=== PATIENT | female | born 1965 | race Two or more races ===

== ENCOUNTER 2024-11-27 12:40 | Emergency (ER) | payer OTHER ==
[~2024-11-27] VITALS: Ht 167.6 cm; Wt 65.8 kg
[2024-11-27] MEDS ORDERED: MORPHINE SULFATE INJ 4 MG/ML DISP.SYRIN ONE (13:11)
[2024-11-27] MEDS ORDERED: ONDANSETRON HCL/PF 4 MG/2 ML VIAL ONE (13:11)
[2024-11-27 13:16] LABS: APPEARANCE,URINE CLEAR (CLEAR); BILIRUBIN,URINE NEGATIVE (NEGATIVE); BLOOD, URINE NEGATIVE Ery/uL (NEGATIVE); COLOR,URINE YELLOW (YELLOW); KETONES,URINE NEGATIVE (NEGATIVE); LEUKOCYTE ESTERASE ,URINE NEGATIVE (NEGATIVE); NITRITE, URINE NEGATIVE (NEGATIVE); PROTEIN,URINE NEGATIVE (NEGATIVE); UGLUCOSE NEGATIVE (NEGATIVE); UROBILINOGEN,URINE 0.2 EU/dL (0.2)
[2024-11-27 13:19] LABS: BASOPHILS % (AUTO) 0.2 % (0.0-2.0); EOSINOPHILS # (AUTO) 0.2 K/uL (0.0-0.7); EOSINOPHILS % (AUTO) 1.7 % (0.0-6.0); HEMATOCRIT 46 % (33-45); HEMOGLOBIN 16.2 g/dL (11.5-14.8); LYMPHOCYTES # (AUTO) 0.9 K/uL (0.8-4.8); LYMPHOCYTES % (AUTO) 8.6 % (20.0-44.0); MEAN CORPUSCULAR HEMOGLOBIN 31 PG (26.0-33.0); MEAN CORPUSCULAR HGB CONC 35 g/dl (31.0-36.0); MEAN CORPUSCULAR VOLUME 87 fL (82-100); MONOCYTES # (AUTO) 0.7 K/uL (0.1-1.30); MONOCYTES % (AUTO) 6.8 % (2.0-12.0); NEUTROPHILS # (AUTO) 9.1 K/uL (1.8-8.9); NEUTROPHILS % (AUTO) 82.7 % (43.0-81.0); PLATELET COUNT (AUTO) 514 K/uL (150-450); RED BLOOD CELL COUNT(AUTO) 5.28 MIL/uL (4.0-5.2); RED CELL DISTRIBUTION WIDTH 13.1 % (11.5-15.0)
[2024-11-27] MEDS: IV NS 0.9% 1,000 ML BAG IV ONE ×2 (13:26→14:35)
[2024-11-27] MEDS: ONDANSETRON HCL/PF 4 MG/2 ML VIAL IVP ONE (13:27)
[2024-11-27] MEDS: MORPHINE SULFATE INJ 2 MG/ML DISP.SYRIN IV ONE (13:30)
[2024-11-27 13:31] LABS: CALCIUM, SERUM 9.7 mg/dL (8.5-10.1); CREATININE 0.9 mg/dL (0.6-1.3)
[2024-11-27] MEDS ORDERED: ONDA4TAB5 PO ×2 (13:35→16:11)
[2024-11-27] MEDS ORDERED: HYDR-4303 PO ×2 (13:35→16:11)
[2024-11-27 13:36] LABS: ALBUMIN 4.1 g/dL (3.4-5.0); BILIRUBIN,DIRECT 0.2 mg/dL (0.0-0.2); BILIRUBIN,TOTAL 0.8 mg/dL (0.2-1.0); TOTAL PROTEIN, SERUM 7.8 g/dL (6.4-8.2)
[2024-11-27] MEDS ORDERED: DICYCLOMINE HCL 10 MG CAPSULE PO ONE (14:34)
[2024-11-27] MEDS: DICYCLOMINE HCL INJ 20 MG/2 ML AMPUL IM ONE (14:35)
[2024-11-27] MEDS ORDERED: DICYCLOMINE HCL INJ 20 MG/2 ML AMPUL IM ONE (14:38)
[2024-11-27] MEDS ORDERED: CT SWABBABLE VALVE TRANS SET 1 EA INFUS.SET MC ONE (14:48)
[2024-11-27] MEDS ORDERED: IOHEXOL-350 100 ML VIAL IV ONE (14:48)
[2024-11-27] MEDS ORDERED: IV NS 0.9% 250 ML IV ONE (14:49)
[2024-11-27] MEDS ORDERED: LISI10TA29 PO (14:52)
[2024-11-27] MEDS ORDERED: BUPR-319 PO (14:52)
[2024-11-27] MEDS ORDERED: DESV25TA PO (14:52)
[2024-11-27] MEDS ORDERED: LEVO-146 PO (14:52)
[2024-11-27] MEDS ORDERED: ACETAMINOPHEN 650 MG/SUPP.RECT RC PRN (16:00)
[2024-11-27] MEDS ORDERED: IV D5/0.45 NACL 1,000 ML IV PRN (16:00)
[2024-11-27] MEDS ORDERED: Z GUARD REMEDY 4 OZ OINT TP PRN (16:00)
[2024-11-27] MEDS ORDERED: ONDANSETRON HCL/PF 4 MG/2 ML VIAL IVP PRN (16:00)
[2024-11-27] MEDS: VANCOMYCIN 1 GM in IV D5W 250ml IV ONE (16:50)
[2024-11-27] MEDS: CEFEPIME 2 GM in IV D5W 100 ML IV SCH (17:00)
[2024-11-27] MEDS: VANCOMYCIN 750 MG in IV D5W 250 ML IV ONE (17:13)
[2024-11-27 17:19] VITALS: BP 112/69; TEMP 98.3; O2SAT 96
[2024-11-28] MEDS ORDERED: VANCOMYCIN 1 GM in IV D5W 250ml IV SCH (05:00)
[2024-11-28] MEDS ORDERED: LEVOTHYROXINE SODIUM 50 MCG TABLET PO SCH (09:00)
[2024-11-28] MEDS ORDERED: Medication Not On Formulary EA (Bupropion Hcl (Bupropion Xl) 300 MG) PO SCH (09:00)
[2024-11-28] MEDS ORDERED: PANTOPRAZOLE 40 MG VIAL IV SCH (09:00)
== END 2024-11-27 17:20 | disposition home or self-care (01) ==
LOC: ER 12:48
DX: K80.20 Calculus of gallbladder without cholecystitis without obstruction (principal); R55 Syncope and collapse; R10.10 Upper abdominal pain, unspecified; Z79.82 Long term (current) use of aspirin; Z85.038 Personal history of other malignant neoplasm of large intestine; Z87.442 Personal history of urinary calculi; Z90.49 Acquired absence of other specified parts of digestive tract
CPT/HCPCS: 99285; 74174; 74176; 96374; 76705; 96361; 96375; 93005; 85025; 80048; 83690; 80076; 81003; 36415; J2270; J2405; J7030 ×2; J7050; J0500; Q9967; J0692; J3370; J3371; J7060